=== PATIENT | female | born 1955 | race Caucasian/White ===

== ENCOUNTER 2018-06-12 06:36 | Emergency (ER) | payer OTHER ==
[~2018-06-12] VITALS: Ht 165.1 cm; Wt 68.2 kg
[2018-06-12 06:44] VITALS: Ht 165.1 cm; Wt 68.2 kg
[2018-06-12] MEDS ORDERED: PROZAC20 MG PO (06:48)
[2018-06-12] MEDS ORDERED: LEVOXYL75 MCG PO (06:48)
[2018-06-12] MEDS ORDERED: CLONAZEPAM1 MG/TAB PO (06:48)
[2018-06-12] MEDS ORDERED: ESTRACE1 MG PO (06:48)
[2018-06-12 07:39] LABS: BASOPHILS 0.1 % (0-2); EOSINOPHILS 1.2 % (0-7); HEMATOCRIT 42.8 % (36.0-48.0); HEMOGLOBIN 14.6 g/dL (12-16); IMMATURE GRANULOCYTES 0.2 % (0-5); LYMPHOCYTES 36.6 % (15-50); MCH 30.2 pg (26.0-34.0); MCHC 34.1 g/dL (31.0-37.0); MCV 88.4 fL (80.0-100.0); MEAN PLATELET VOLUME 9.1 fL (7.4-10.4); MONOCYTES 8.8 % (2-11); NEUTROPHILS 53.1 % (40-80); PLATELET COUNT 292 10x3/uL (130-400); RBC 4.84 10x6/uL (4.00-5.40); RDW 13.3 % (11.5-14.5); WBC 8.6 10x3/uL (4.8-10.8)
[2018-06-12 07:50] LABS: ACETAMINOPHEN 0.2 ug/mL (10.0-30.0); ALBUMIN 3.8 g/dL (3.4-5.0); ALKALINE PHOSPHATASE 60 U/L (46-116); ALT (SGPT) 43 U/L (10-68); BILIRUBIN - TOTAL 0.39 mg/dL (0.2-1.3); CALC OSMOLALITY 277 mosm/kg (275-300); CALCIUM 9.3 mg/dL (8.5-10.1); CARBON DIOXIDE 25.5 mmol/L (21.0-32.0); CHLORIDE - SERUM 104 mmol/L (98-107); CREATININE - SERUM 0.8 mg/dL (0.6-1.3); GLUCOSE 94 mg/dL (74-106); POTASSIUM - SERUM 4.2 mmol/L (3.5-5.1); PROTEIN - SERUM 7.4 g/dL (6.4-8.2); SODIUM 139 mmol/L (136-145); UREA NITROGEN 12 mg/dL (7-18); eGFR NON AFRICAN AMERICAN 77 mL/min (90-120)
[2018-06-12 09:12] LABS: APPEARANCE HAZY (CLEAR); BILIRUBIN NEGATIVE (NEGATIVE); COLOR STRAW (YELLOW); GLUCOSE NEGATIVE (NEGATIVE); KETONE NEGATIVE (NEGATIVE); NITRITE NEGATIVE (NEGATIVE); PROTEIN NEGATIVE (NEGATIVE); SPECIFIC GRAVITY 1.015 (1.005-1.020); UROBILINOGEN NORMAL (NORMAL)
[2018-06-12] MEDS ORDERED: ZOFRAN ODT4 MG/UDTAB PO (09:38)
[2018-06-12 09:50] VITALS: BP 142/68
[2018-06-12 10:07] LABS: UDS - AMPHET NEGATIVE QUAL (NEGATIVE); UDS - BARB NEGATIVE QUAL (NEGATIVE); UDS - BENZO NEGATIVE QUAL (NEGATIVE); UDS - COCAINE NEGATIVE QUAL (NEGATIVE); UDS - OPIATE NEGATIVE QUAL (NEGATIVE); UDS - PCP NEGATIVE QUAL (NEGATIVE); UDS - THC NEGATIVE QUAL (NEGATIVE)
== END 2018-06-12 09:50 | disposition home or self-care (01) ==
LOC: D.ER 06:36
PROVIDERS: Family Medicine
DX: F41.9 Anxiety disorder, unspecified (principal); R25.2 Cramp and spasm; R11.0 Nausea; E07.9 Disorder of thyroid, unspecified; K21.9 Gastro-esophageal reflux disease without esophagitis